=== PATIENT | male | born 1980 | race African-American/Black ===

== ENCOUNTER 2020-09-01 00:08 | Emergency (ER) | payer SELFPAY ==
[~2020-09-01] VITALS: Ht 162.6 cm; Wt 59.0 kg
[2020-09-01] MEDS ORDERED: ONDANSETRON HCL 4MG/2ML INJ IV STA (00:19)
[2020-09-01] MEDS ORDERED: MORPHINE SULFATE 4 MG/ML CPJ (NOT FOR IM USE) IV STA (00:19)
[2020-09-01] MEDS ORDERED: BACITRACIN ZINC OINT UDPKT TOP ONE (00:30)
[2020-09-01] MEDS ORDERED: CEFAZOLIN 1000MG PREMIX 50 ML IV ONE (00:30)
[2020-09-01] MEDS ORDERED: TETANUS, DIPHTHERIA, PERTUSSIS VAC/PF 0.5ML (>7YR OLD) IM ONE (00:30)
[2020-09-01 05:42] VITALS: BP 109/65
== END 2020-09-01 05:45 | disposition home or self-care (01) ==
LOC: ER 00:08
DX: S00.81XA Abrasion of other part of head, initial encounter (principal); S41.032A Puncture wound without foreign body of left shoulder, initial encounter; S21.132A Puncture wound without foreign body of left front wall of thorax without penetration into thoracic cavity, initial encounter; W34.00XA Accidental discharge from unspecified firearms or gun, initial encounter; Y93.89 Activity, other specified; Y92.89 Other specified places as the place of occurrence of the external cause; Y99.8 Other external cause status
CPT/HCPCS: 70140; 71045; 72040; 73030; 90471; 90715; 96365; 96375; 99284; J0690; J2270; J2405